=== PATIENT | female | born 1980 | race Caucasian/White ===

== ENCOUNTER 2020-12-26 08:00 | Outpatient (CLI) | payer BC ==
[2020-12-26 14:27] LABS: BASOPHILS % (AUTO) 0.7 % (0-1); EOSINOPHILS # (AUTO) 0.1 X10'3 (0-0.9); EOSINOPHILS % (AUTO) 2.3 % (0-6); LYMPHOCYTES # (AUTO) 1.7 X10'3 (1.1-4.8); MEAN CORPUSCULAR HEMOGLOBIN 24.6 PG (27.0-31.0); MEAN CORPUSCULAR HGB CONC 31.4 g/dL (33.0-36.5); MEAN CORPUSCULAR VOLUME 78.4 FL (78-98); MEAN PLATELET VOLUME 7.4 FL (7.4-10.4); MONOCYTES # (AUTO) 0.4 X10'3 (0-0.9); MONOCYTES % (AUTO) 6.6 % (2-12); NEUTROPHILS # (AUTO) 3.4 X10'3 (1.8-7.7); NEUTROPHILS % (AUTO) 60.4 % (42-75); PRE OP HEMATOCRIT 36.2 % (35.0-45.0); PRE OP HEMOGLOBIN 11.4 g/dL (12.0-16.0); PRE OP PLATELET COUNT 197 X10'3 (140-440); RED BLOOD COUNT 4.62 X10'6 (4.20-5.60); RED CELL DISTRIBUTION WIDTH 21.3 % (11.5-14.5)
[2020-12-26 14:35] LABS: ALBUMIN 3.5 G/DL (3.4-5.0); ALBUMIN/GLOBULIN RATIO 0.9 (1.1-1.5); ALKALINE PHOSPHATASE 87 IU/L (46-116); BLOOD UREA NITROGEN 16 MG/DL (7-18); BUN/CREATININE RATIO 17.4 (6.6-38.0); CALCIUM 8.9 MG/DL (8.5-10.1); CHLORIDE 104 MMOL/L (99-107); CREATININE 0.92 MG/DL (0.40-0.90); PRE OP ALT 36 U/L (30-65); PRE OP ANION GAP 5 (8-16); PRE OP AST 27 U/L (10-37); PRE OP BILIRUB, TOTAL 0.3 MG/DL (0.0-1.0); PRE OP GLUCOSE 93 MG/DL (70-104); PRE OP POTASSIUM 4.4 MMOL/L (3.4-5.1); PRE OP SODIUM 139 MMOL/L (135-145); TOTAL PROTEIN 7.5 G/DL (6.4-8.2); eGFR 67 ML/MIN
[2020-12-26] MEDS ORDERED: POST NATAL VITAMIN PO (14:49)
[2020-12-26 15:02] LABS: HCG SERUM QL NEGATIVE
== END 2020-12-26 23:00 | disposition home or self-care (01) ==
LOC: LAB 08:00 → EDSTATUS 03-06 07:30
PROVIDERS: ATTEND Obstetrics & Gynecology
DX: Z01.812 Encounter for preprocedural laboratory examination (principal); N92.0 Excessive and frequent menstruation with regular cycle; N94.6 Dysmenorrhea, unspecified; Z20.822 Contact with and (suspected) exposure to COVID-19
CPT/HCPCS: 36415; 80053; 84703; 85025; U0003; U0005

== ENCOUNTER 2021-03-06 05:26 | Day surgery (SDC) | payer BC ==
[2021-02-27 15:43] LABS: BASOPHILS % (AUTO) 0.3 % (0-1); EOSINOPHILS # (AUTO) 0.2 X10'3 (0-0.9); EOSINOPHILS % (AUTO) 3.1 % (0-6); LYMPHOCYTES # (AUTO) 1.9 X10'3 (1.1-4.8); LYMPHOCYTES % (AUTO) 32.9 % (21-51); MEAN CORPUSCULAR HEMOGLOBIN 26.6 PG (27.0-31.0); MEAN CORPUSCULAR HGB CONC 33.1 g/dL (33.0-36.5); MEAN CORPUSCULAR VOLUME 80.4 FL (78-98); MEAN PLATELET VOLUME 7.1 FL (7.4-10.4); MONOCYTES # (AUTO) 0.4 X10'3 (0-0.9); MONOCYTES % (AUTO) 7.6 % (2-12); NEUTROPHILS # (AUTO) 3.2 X10'3 (1.8-7.7); NEUTROPHILS % (AUTO) 56.1 % (42-75); PRE OP HEMATOCRIT 34.1 % (35.0-45.0); PRE OP HEMOGLOBIN 11.3 g/dL (12.0-16.0); PRE OP PLATELET COUNT 198 X10'3 (140-440); RED BLOOD COUNT 4.25 X10'6 (4.20-5.60); RED CELL DISTRIBUTION WIDTH 18.2 % (11.5-14.5)
[2021-02-27 16:05] LABS: ALBUMIN 3.8 G/DL (3.4-5.0); ALKALINE PHOSPHATASE 99 IU/L (46-116); BLOOD UREA NITROGEN 17 MG/DL (7-18); CALCIUM 9.5 MG/DL (8.5-10.1); CHLORIDE 105 MMOL/L (99-107); CREATININE 0.81 MG/DL (0.40-0.90); PRE OP ALT 29 U/L (30-65); PRE OP ANION GAP 4 (8-16); PRE OP AST 20 U/L (10-37); PRE OP BILIRUB, TOTAL 0.2 MG/DL (0.0-1.0); PRE OP GLUCOSE 90 MG/DL (70-104); PRE OP POTASSIUM 4.4 MMOL/L (3.4-5.1); PRE OP SODIUM 142 MMOL/L (135-145); TOTAL CARBON DIOXIDE 32.9 MMOL/L (24-32); TOTAL PROTEIN 7.6 G/DL (6.4-8.2); eGFR 78 ML/MIN
[2021-02-27 16:06] LABS: HCG SERUM QL NEGATIVE
[2021-03-06] VITALS (10 sets, daily range): BP systolic 108–140; BP diastolic 59–86
[~2021-03-06] VITALS: Ht 172.7 cm; Wt 106.9 kg
[~2021-03-06 05:26] MED LIST: DOMPERIDONE PO; ringers solution, lacted 1,000 ML IV SCH
[2021-03-06] MEDS ORDERED: famotidine 20mg tablet PO ONE ×2 (05:30→06:00)
[2021-03-06] MEDS ORDERED: cefazolin/dext.iso 2gm/100ml IV ONE (05:30)
[2021-03-06] MEDS ORDERED: midazolam 1 mg/ML 2ml injection ONE (07:24)
[2021-03-06] MEDS ORDERED: sevoflurane 250ml liquid IH ONE (07:24)
[2021-03-06] MEDS ORDERED: fentaNYL/PF 50MCG/1 ML 2ML syringe ONE (07:24)
[2021-03-06] MEDS ORDERED: ondansetron/PF 4mg/2ml inj ONE (07:38)
[2021-03-06] MEDS ORDERED: LIDOcaine 2% (20mg/ml) 5ml vial ONE (07:38)
[2021-03-06] MEDS ORDERED: glycopyrrolate 0.2mg/ml inj ONE (07:38)
[2021-03-06] MEDS ORDERED: dexamethasone sod phosphate 4mg/ml inj. ONE (07:38)
[2021-03-06] MEDS ORDERED: neostigmine methylsulfate 1 MG/ML 10ml vial ONE (07:38)
[2021-03-06] MEDS ORDERED: rocuronium 10mg/ml inj IV ONE (07:38)
[2021-03-06] MEDS ORDERED: propofol inj 20 ML IV ONE (07:38)
[2021-03-06] MEDS ORDERED: ringers solution, lacted 1,000 ML IV SCH (08:25)
[2021-03-06] MEDS ORDERED: meperidine/PF 25mg/ml syringe IV PRN ×2 (08:25)
[2021-03-06] MEDS ORDERED: ondansetron/PF 4mg/2ml inj IV PRN (08:25)
[2021-03-06] MEDS ORDERED: morphine 4 MG/ML inj SYRINge IV PRN (08:25)
[2021-03-06] MEDS ORDERED: morphine 2 MG/ML inj. syringe IV PRN (08:25)
[2021-03-06] MEDS ORDERED: proCHLORperazine 10 MG/2 ml inj IV PRN (08:25)
--- NOTE | 2021-03-06 08:36 | NUR ---
Received from OR via [facility] , accompanied by Anesthesiologist ARASELI and report given by Anesthesiolgist. PATIENT WITH SINGLE DRESSING TO ABDOMEN THAT IS CDI. VSS. PATIENT WITH 10L MASK ON WITH 100% SATURATIONS. VSS Addendum: 03/06/21 at 0907 by Robert Chew RN, RN Amended: Links added.
[2021-03-06] MEDS: meperidine/PF 25mg/ml syringe IV PRN ×2 (09:00→09:11)
--- NOTE | 2021-03-06 10:06 | NUR ---
ALL DC CRITERIA HAS BEEN MET. IV OUT WITHOUT COMPLICATIONS. DENIES PAIN AT THIS TIME. VOIDED, AMBULATED AND DRESSINGS ALL CDI. PATIENT SPOUSE PICKED HER UP AND TOOK HER HOME. PATIENT UNDERSTOOD ALL DC INSTRUCTIONS. Addendum: 03/06/21 at 1022 by Robert Phelan - PARUL TERAN Amended: Links added.
[2021-03-06] MEDS ORDERED: BUPIVAcaine 0.5% W/EPI /PF 10ml vial ONE (10:48)
== END 2021-03-06 10:06 | disposition home or self-care (01) ==
LOC: PAS 05:26
PROVIDERS: ATTEND Obstetrics & Gynecology
DX: Z30.2 Encounter for sterilization (principal); N92.1 Excessive and frequent menstruation with irregular cycle; G43.909 Migraine, unspecified, not intractable, without status migrainosus; E66.9 Obesity, unspecified; Z68.35 Body mass index [BMI] 35.0-35.9, adult; Z79.899 Other long term (current) drug therapy; Z90.49 Acquired absence of other specified parts of digestive tract; Z98.890 Other specified postprocedural states; Z98.84 Bariatric surgery status
CPT/HCPCS: 36415; 58563; 58670; 80053; 82948; 84703; 85025; J1100; J2001; J2175; J2250; J2405; J2704; J2710; J3010; J7120; U0003; U0005; Z7506; Z7508; Z7512; A4355; A4618; A4649; A6258; A7000; J3490